=== PATIENT | male | born 1965 | race Caucasian/White ===

== ENCOUNTER → 2017-01-18 | Outpatient (CLI) | payer BC ==
[~2017-01-18] VITALS: Ht 185.4 cm; Wt 167.7 kg
[~2017-01-18] MED LIST: IBUP-1277 PO; MULT-506 PO
[2017-01-18 16:03] VITALS: BP 136/92; PULSE 97; Ht 185.4 cm; Wt 167.7 kg
== END | disposition home or self-care (01) ==
LOC: C.NEUR 15:20
PROVIDERS: ATTEND Internal Medicine Pulmonary Disease
DX: G47.9 Sleep disorder, unspecified (principal); R06.83 Snoring; R53.83 Other fatigue; E66.01 Morbid (severe) obesity due to excess calories